=== PATIENT | male | born 1970 | race Caucasian/White ===

== ENCOUNTER → 2016-05-02 | Outpatient (CLI) | payer BC ==
[2016-05-02 14:15] LABS: SYNOVIAL FLUID APPEARANCE CLOUDY; SYNOVIAL FLUID COLOR PALE YELLOW; SYNOVIAL FLUID MONONUC RELAT 12.5 %; SYNOVIAL FLUID POLYNUC RELAT 87.5 %
[2016-05-04 00:33] LABS: LYME DNA PCR CSF OR SYNOVIAL Detected (Not Detected); LYME DNA SOURCE Synovial Fluid
== END | disposition home or self-care (01) ==
LOC: C.LABSPEC 10:20
PROVIDERS: ATTEND Orthopaedic Surgery
DX: M25.561 Pain in right knee (principal); M25.461 Effusion, right knee